=== PATIENT | female | born 1980 | race Caucasian/White ===

== ENCOUNTER 2021-11-27 16:44 | Outpatient (CLI) | payer OTHER, SELFPAY ==
--- NOTE | ~2021-11-27 | MM_ITS ---
EXAMINATION: MM screening luna BI w lolis HISTORY: Screening mammogram TECHNIQUE: Craniocaudal and mediolateral oblique 3-D tomosynthesis images were obtained and synthetic 2-D images were generated. CAD analysis was submitted and interpreted. COMPARISON: None, baseline BREAST PARENCHYMAL COMPOSITION: The breasts are heterogeneously dense, which may obscure small masses . FINDINGS: RIGHT BREAST: A focal asymmetry is present in the middle third of the central breast. LEFT BREAST: There is no evidence of suspicious mass, calcification, or architectural distortion to s uggest malignancy. IMPRESSION: 1. Focal asymmetry of the right breast. 2. Additional mammographic views and possible breast ultrasound are recommended. BI-RADS Category 0: Incomplete: Needs additional imaging evaluation. Reviewed, dictated and finalized at location A. [employer] IMPRESSION: 1. Focal asymmetry of the right breast. 2. Additional mammographic views and possible breast ultrasound are recommended . BI-RADS Category 0: Incomplete: Needs additional imaging evaluation.
== END 2021-11-27 16:45 | disposition home or self-care (01) ==
LOC: ANHIMG 16:49
PROVIDERS: PCP Family Medicine; Visit Provider Obstetrics & Gynecology
DX: Z12.31 Encounter for screening mammogram for malignant neoplasm of breast (principal); R92.8 Other abnormal and inconclusive findings on diagnostic imaging of breast
CPT/HCPCS: 77063; 77067

== ENCOUNTER 2021-12-11 11:52 | Outpatient (CLI) | payer OTHER, SELFPAY ==
--- NOTE | ~2021-12-11 | MM_ITS ---
EXAMINATION: MM diagnostic luna RT w lolis HISTORY: Focal asymmetry right breast reported on screening mammogram of November 27, 2021 TECHNIQUE: Additional ML and spot ML, MLO and CC 3-D tomosynthesis images of the right breast were pe rformed and synthetic 2-D images were generated. CAD analysis was submitted and interpreted. COMPARISON: November 27, 2021 bilateral screening mammogram FINDINGS: No suspicious mass or architectural distortion is evident. The focal asymmetry in the middle third of the central breast reported on November 27, 2021 bilateral screening mammogram is not reproduced on these supplemental views, consistent with summation shadow o f overlapping fibroglandular content. IMPRESSION: 1. No mammographic evidence of malignancy 2. Routine annual mammographic screening is recommended BI-RADS Category 1: Negative Reviewed, dictated and finalized at location A. ESMITH
== END 2021-12-11 11:53 | disposition home or self-care (01) ==
PROVIDERS: PCP Family Medicine; Visit Provider Obstetrics & Gynecology
DX: R92.8 Other abnormal and inconclusive findings on diagnostic imaging of breast (principal)
CPT/HCPCS: 77061; 77065; G0279

== ENCOUNTER 2023-03-25 12:01 | Outpatient (CLI) | payer OTHER, SELFPAY ==
--- NOTE | ~2023-03-25 | MM_ITS ---
EXAMINATION: MM screening luna BI w lolis HISTORY: Screening TECHNIQUE: Craniocaudal and mediolateral oblique 3-D tomosynthesis images were obtained and synthetic 2-D images were generated. CAD analysis was submitted and interpreted. COMPARISON: Comparison to multiple prior studies sequentially, with oldest reviewed study dated 06/2022. BREAST PARENCHYMAL COMPOSITION: The breasts are heterogeneously dense, which may obscure small masses . FINDINGS: There is no evidence of suspicious mass, calcification, or architectural distortion to sugg est malignancy in either breast. There has been no suspicious interval change. IMPRESSION: 1. No mammographic evidence of malignancy. 2. Recommend routine screening mammography in one year. BI-RADS Category 1: Negative Reviewed, dictated and finalized at location A.
== END 2023-03-25 12:02 | disposition home or self-care (01) ==
LOC: ANHIMG 12:03
PROVIDERS: PCP Family Medicine; Visit Provider Obstetrics & Gynecology
DX: Z12.31 Encounter for screening mammogram for malignant neoplasm of breast (principal)
CPT/HCPCS: 77063; 77067